=== PATIENT | male | born 1990 | race Caucasian/White ===

== ENCOUNTER 2018-07-14 17:48 | Emergency (ER) | payer MEDICAID ==
[~2018-07-14] VITALS: Ht 170.2 cm; Wt 77.3 kg
[2018-07-14 17:50] VITALS: Ht 170.2 cm; Wt 77.3 kg
[2018-07-14] MEDS ORDERED: ROBAXIN500 MG PO (19:13)
[2018-07-14] MEDS ORDERED: VOLTAREN75 MG PO (19:13)
[2018-07-14 20:05] VITALS: BP 146/85
== END 2018-07-14 20:06 | disposition home or self-care (01) ==
LOC: D.ER 17:48
DX: M54.2 Cervicalgia (principal); V49.9XXA Car occupant (driver) (passenger) injured in unspecified traffic accident, initial encounter; Y93.89 Activity, other specified; Y92.410 Unspecified street and highway as the place of occurrence of the external cause